=== PATIENT | female | born 1940 | race Caucasian/White ===

== ENCOUNTER 2020-01-08 19:16 | Inpatient (IN) | payer OTHER ==
[~2020-01-08] VITALS: Ht 152.4 cm; Wt 62.2 kg
[2020-01-08 19:30] VITALS: BP_SYST 145
[2020-01-08] MEDS ORDERED: KETOROLAC TROMETHAMINE 30 MG VIAL IM ONE (20:00)
[2020-01-08] MEDS ORDERED: TOLT4CAP PO (20:12)
[2020-01-08] MEDS ORDERED: SYN50 PO (20:12)
[2020-01-08] MEDS ORDERED: XALEYE OP (20:13)
[2020-01-08 21:28] LABS: BASOPHILS % (AUTO) 0.3 % (0.0-2.0); EOSINOPHILS # (AUTO) 0.1 K/uL (0.0-0.4); EOSINOPHILS % (AUTO) 1.4 % (0.0-4.0); HEMATOCRIT 38.3 % (36-48); HEMOGLOBIN 13.1 g/dL (12.0-16.0); LYMPHOCYTES # (AUTO) 1.2 K/uL (1.0-5.5); MEAN CORPUSCULAR HEMOGLOBIN 32 pg (27-31); MEAN CORPUSCULAR HGB CONC 34 % (32-36); MEAN CORPUSCULAR VOLUME 94 fL (79.0-98.0); MONOCYTES # (AUTO) 1.1 K/uL (0.0-1.0); MONOCYTES % (AUTO) 11.2 % (1.7-9.3); NEUTROPHILS # (AUTO) 7.5 K/uL (1.8-7.7); NEUTROPHILS % (AUTO) 75.1 % (40.0-70.0); PLATELET COUNT (AUTO) 223 K/uL (130-430); RED BLOOD CELL COUNT(AUTO) 4.09 MIL/uL (4.2-6.2); RED CELL DISTRIBUTION WIDTH 13.5 % (9.0-15.0); WHITE BLOOD COUNT (AUTO) 9.9 K/uL (4.8-10.8)
[2020-01-08 21:43] LABS: ANION GAP 8 (5-15); CALCIUM 8.5 mg/dL (8.4-11.0); CHLORIDE 101 mmol/L (98-107); CREATININE 0.88 mg/dL (0.55-1.30); GLUCOSE 106 mg/dL (70-99); POTASSIUM 3.6 mmol/L (3.5-5.1); SODIUM SERUM 136 mmol/L (136-145); UREA NITROGEN, BLOOD 17 mg/dL (8-21)
[2020-01-08 21:49] LABS: ALANINE AMINOTRANSFERASE 29 U/L (12-78); ALBUMIN 3.3 g/dL (3.4-4.8); ASPARTATE AMINOTRANSFERASE 22 U/L (10-37); TOTAL BILIRUBIN 0.6 mg/dL (0.0-1.0)
[2020-01-08 23:05] LABS: BILIRUBIN,URINE NEGATIVE (NEGATIVE); BLOOD, URINE 3+ (NEGATIVE); CLARITY/URINE CLEAR (CLEAR); COLOR,URINE YELLOW (YELLOW); GLUCOSE,URINE NEGATIVE (NEGATIVE); KETONES,URINE NEGATIVE (NEGATIVE); LEUKOCYTE ESTERASE ,URINE NEGATIVE (NEGATIVE); NITRITE, URINE NEGATIVE (NEGATIVE); PH,URINE 5.5 (5.0-8.0); PROTEIN URINE NEGATIVE (NEGATIVE); UROBILINOGEN,URINE 0.2 (0.2-1.0)
[2020-01-08 23:14] VITALS: BP_SYST 138
[2020-01-08 23:21] LABS: RBC,URINE 20-50 /HPF (0-3)
[2020-01-08 23:22] LABS: BACTERIA,URINE MODERATE /HPF (None Seen)
[2020-01-09] VITALS: BP_SYST 138
[2020-01-09] MEDS ORDERED: MORPHINE 2 MG/ML INJ. SYRINGE IVP PRN (01:45)
[2020-01-09] MEDS ORDERED: ONDANSETRON HCL 4 MG/2 ML VIAL IVP PRN (01:45)
[2020-01-09] MEDS ORDERED: ALBUTEROL SULFATE 0.083% 2.5 MG/3 ML VIAL.NEB INH PRN (01:45)
[2020-01-09] MEDS ORDERED: cefTRIAXone 1 GM IVPB PREMIX 50 ML IV ONE (02:42)
[2020-01-09] MEDS: cefTRIAXone 1 GM IVPB PREMIX 50 ML IV SCH (03:06)
[2020-01-09 03:56] VITALS: BP_SYST 138
[2020-01-09 06:32] LABS: BASOPHILS % (AUTO) 0.4 % (0.0-2.0); EOSINOPHILS # (AUTO) 0.2 K/uL (0.0-0.4); EOSINOPHILS % (AUTO) 2.1 % (0.0-4.0); HEMATOCRIT 35.4 % (36-48); LYMPHOCYTES # (AUTO) 1.4 K/uL (1.0-5.5); MEAN CORPUSCULAR HEMOGLOBIN 32 pg (27-31); MEAN CORPUSCULAR HGB CONC 34 % (32-36); MEAN CORPUSCULAR VOLUME 95 fL (79.0-98.0); MONOCYTES # (AUTO) 0.9 K/uL (0.0-1.0); MONOCYTES % (AUTO) 12.2 % (1.7-9.3); NEUTROPHILS # (AUTO) 5.2 K/uL (1.8-7.7); NEUTROPHILS % (AUTO) 67.3 % (40.0-70.0); PLATELET COUNT (AUTO) 223 K/uL (130-430); RED BLOOD CELL COUNT(AUTO) 3.75 MIL/uL (4.2-6.2); RED CELL DISTRIBUTION WIDTH 13.4 % (9.0-15.0); WHITE BLOOD COUNT (AUTO) 7.7 K/uL (4.8-10.8)
[2020-01-09 08:00] VITALS: BP_SYST 136
[2020-01-09 08:46] LABS: ALANINE AMINOTRANSFERASE 26 U/L (12-78); ALBUMIN 2.8 g/dL (3.4-4.8); ANION GAP 10 (5-15); ASPARTATE AMINOTRANSFERASE 19 U/L (10-37); CALCIUM 8.2 mg/dL (8.4-11.0); CHLORIDE 100 mmol/L (98-107); CREATININE 0.89 mg/dL (0.55-1.30); GLUCOSE 108 mg/dL (70-99); POTASSIUM 3.3 mmol/L (3.5-5.1); SODIUM SERUM 135 mmol/L (136-145); TOTAL BILIRUBIN 0.6 mg/dL (0.0-1.0); UREA NITROGEN, BLOOD 22 mg/dL (8-21)
[2020-01-09] MEDS: ENOXAPARIN SODIUM 40 MG/0.4 ML SYRINGE SUBCUT SCH (09:09)
[2020-01-09] MEDS ORDERED: OSCD500 PO (09:30)
[2020-01-09] MEDS ORDERED: MULT-1089 PO (09:30)
[2020-01-09] MEDS ORDERED: OCUVITE PO (09:30)
[2020-01-09] MEDS ORDERED: CALC-823 PO (09:30)
[2020-01-09] MEDS ORDERED: POTASSIUM CHLORIDE 20 MEQ TAB.PRT.SR PO ONE (10:45)
[2020-01-09] MEDS ORDERED: LEVOTHYROXINE SODIUM 0.05 MG TABLET PO ONE (11:15)
[2020-01-09 12:00] VITALS: BP_SYST 132
[2020-01-09 17:15] VITALS: BP_SYST 142
[2020-01-09 20:00] VITALS: BP_SYST 146
[2020-01-09] MEDS: LATANOPROST 2.5 ML DROPS (XALATAN) OP SCH (21:50)
[2020-01-10 00:38] VITALS: BP_SYST 138
[2020-01-10] MEDS: cefTRIAXone 1 GM IVPB PREMIX 50 ML IV SCH (01:50)
[2020-01-10] MEDS: LEVOTHYROXINE SODIUM 0.05 MG TABLET PO SCH (06:17)
[2020-01-10 08:00] VITALS: BP_SYST 123
[2020-01-10] MEDS: ENOXAPARIN SODIUM 40 MG/0.4 ML SYRINGE SUBCUT SCH (08:49)
[2020-01-10 12:24] VITALS: BP_SYST 123
[2020-01-10 17:03] VITALS: BP_SYST 130
[2020-01-10 20:00] VITALS: BP_SYST 134
[2020-01-10] MEDS: LATANOPROST 2.5 ML DROPS (XALATAN) OP SCH (22:06)
[2020-01-11 01:26] VITALS: BP_SYST 129
[2020-01-11] MEDS: cefTRIAXone 1 GM IVPB PREMIX 50 ML IV SCH (01:59)
[2020-01-11] MEDS: LEVOTHYROXINE SODIUM 0.05 MG TABLET PO SCH (06:13)
[2020-01-11 08:07] VITALS: BP_SYST 117
[2020-01-11] MEDS: ENOXAPARIN SODIUM 40 MG/0.4 ML SYRINGE SUBCUT SCH (08:38)
[2020-01-11] MEDS: HYDROcodone/ACETAMIN 5-325 MG TAB (NORCO/ VICODIN) PO PRN ×2 (08:45→14:16)
[2020-01-11 08:57] VITALS: BP_SYST 136
[2020-01-11 12:37] VITALS: BP_SYST 96
[2020-01-11 16:44] VITALS: BP_SYST 136
== END 2020-01-11 19:05 | DRG 690 ==
LOC: SED 19:16 → STU 21:53 → SMU 22:10
PROVIDERS: ADMIT Internal Medicine Hospice and Palliative Medicine; ATTEND Internal Medicine Hospice and Palliative Medicine
DX: N39.0 Urinary tract infection, site not specified (principal); G20 Parkinson's disease; E03.9 Hypothyroidism, unspecified
CPT/HCPCS: 36415; 70450-TC; 72192-TC; 73502; 73560-TC; 80053; 81000-TC; 85025; 87086; 93005; 96372; 97110-GP; 97116-GP; 97530-GP; 99285; J0696; J1650; J1885